=== PATIENT | male | born 1995 ===

== ENCOUNTER 2017-10-21 11:53 | Emergency (ER) | payer SELFPAY ==
[2017-10-21 12:41] LABS: #Lymphocytes 1.2 thou/uL (1.20-3.40); #Monocytes 0.6 thou/uL (0.11-0.59); #Neutrophils 5.2 thou/uL (1.40-6.50); %Basophils 0.5 % (0.0-1.0); %Eosinophils 0.7 % (0.0-10.0); %Lymphocytes 17.2 % (21.0-51.0); %Monocytes 8.4 % (0.0-10.0); %Neutrophils 73.3 % (42.0-75.0); Hemoglobin 15.7 g/dL (14.0-18.0); Mean Corpuscular HGB CONC 33.5 g/dL (32.0-36.0); Mean Corpuscular Hemoglobin 31.5 pg (27.0-31.0); Mean Corpuscular Volume 93.9 fl (80.0-94.0); Mean Platelet Volume 7.8 fL (7.4-10.4); Platelet Count 257 thou/uL (130-400); RBC Distribution Width 11.7 % (11.5-14.5); White Blood Cell (WBC) Count 7.1 thou/uL (4.8-10.8)
[2017-10-21 13:00] LABS: ALT (SGPT) 33 U/L (8-55); AST (SGOT) 22 U/L (5-34); Alkaline Phosphatase 95 U/L (40-150); Anion Gap 12 mmol/L (10-20); BUN (Urea Nitrogen) 9 mg/dL (8.9-20.6); Bilirubin, Total 0.6 mg/dL (0.2-1.2); Calc. Creatinine Clearance 0 mL/min (70-130); Calcium 9.7 mg/dL (7.8-10.44); Carbon Dioxide 28 mmol/L (22-29); Chloride 104 mmol/L (98-107); Estimated GFR-MDRD Greater than 90; Globulin 2.6 g/dL (2.4-3.5); Glucose 98 mg/dL (70-105); Potassium 3.9 mmol/L (3.5-5.1); Protein, Total 7.6 g/dL (6.0-8.3); Sodium 140 mmol/L (136-145)
--- NOTE | 2017-10-21 14:19 | RAD ---
PA AND LATERAL CHEST RADIOGRAPH: Date: 10-21-17 History: Vomiting blood. Severe abdominal pain. FINDINGS: Cardiac silhouette and pulmonary vasculature are within normal limits. The lungs are clear. The osseo us structures are intact. IMPRESSION: No acute cardiopulmonary process. POS: [facility]
[2017-10-21] MEDS ORDERED: Ondansetron ODT 8 MG TAB ONE (14:23)
[2017-10-21] MEDS ORDERED: Acetaminophen 500 MG TAB ONE ×2 (14:23)
== END 2017-10-21 14:35 | disposition home or self-care (01) ==
LOC: ERS 11:53
DX: K29.70 Gastritis, unspecified, without bleeding (principal)
CPT/HCPCS: 36415; 71046; 80053; 83690; 85025; 86850; 86900; 86901; 99284